=== PATIENT | female | born 1985 | race African-American/Black ===

== ENCOUNTER 2017-03-18 10:07 | Emergency (ER) | payer MEDICAID ==
[~2017-03-18] VITALS: Ht 172.7 cm; Wt 99.8 kg
[2017-03-18 11:00] LABS: Basophils # (auto) 0.1 uL; Eosinophils # (auto) 0.1 uL; Hematocrit 23.3 % (36.0-46.0); Lymphocytes # (auto) 1.2 uL; Lymphocytes % (auto) 7.7 % (10.0-50.0); Mean Corpuscular Hemoglobin 15.9 pg (28.0-32.0); Mean Corpuscular Hgb Conc. 27.7 g/dL (32.0-36.0); Neutrophils # (auto) 12.8 uL
[2017-03-18 11:02] LABS: Basophils % (auto) 0.6 % (0.0-2.0); Eosinophils % (auto) 0.9 % (0.0-7.0); Mean Corpuscular Volume 57.5 fL (80.0-100.0); Monocytes # (auto) 1.5 uL; Monocytes % (auto) 9.3 % (0.0-12.0); Neutrophils % (auto) 81.5 % (37.0-80.0); Nucleated Red Blood Cells % 0.2 %; Platelet Count (auto) 256 10^3/uL (140-450); Red Blood Cells 4.04 10^6/uL (4.0-5.20); White Blood Cell 15.7 10^3/uL (4.4-10.8)
[2017-03-18 11:07] LABS: Hemoglobin 6.4 g/dL (12.2-16.2)
[2017-03-18 11:30] LABS: Alanine Aminotransferase 18 U/L (13-56); Albumin 3.9 g/dL (3.4-5.0); Alkaline Phosphatase 72 U/L (45-117); Anion Gap 8 (5-15); Aspartate Aminotransferase 14 U/L (15-37); BUN/Creatinine Ratio 14.9; Bilirubin, Total 0.7 mg/dL (0.2-1.0); Blood Urea Nitrogen 13 mg/dL (7-18); Calcium 8.9 mg/dL (8.5-10.1); Carbon Dioxide 23 mmol/L (21-32); Chloride 107 mmol/L (98-107); GFR African American 98 mL/min; GFR Non-African American 81 mL/min; Glucose 102 mg/dL (74-106); Potassium 4.2 mmol/L (3.5-5.1); Sodium 138 mmol/L (136-145); Total Protein 7.9 g/dL (6.4-8.2)
[2017-03-18 12:15] VITALS: BP 138/71
[2017-03-18 12:45] LABS: Urine Bacteria FEW /hpf (None Seen); Urine Blood Negative /uL (Negative); Urine Mucus FEW (None Seen); Urine Specific Gravity 1.021 (1.001-1.035); Urine WBC 1 /hpf (0 - 5)
== END 2017-03-18 13:46 | disposition left against medical advice (07) ==
LOC: ER 10:07 → EDBD 10:07 → ER 13:46
DX: R07.9 Chest pain, unspecified (principal); T45.4X5A Adverse effect of iron and its compounds, initial encounter; D64.9 Anemia, unspecified; R42 Dizziness and giddiness; Y93.89 Activity, other specified; Y99.8 Other external cause status; Y92.89 Other specified places as the place of occurrence of the external cause
CPT/HCPCS: 36415; 80053; 81001; 84484; 85025; 93005

== ENCOUNTER 2017-03-21 05:31 | Emergency (ER) | payer MEDICAID ==
[2017-03-21] VITALS (11 sets, daily range): BP systolic 134–151; BP diastolic 55–86
[~2017-03-21] VITALS: Ht 172.7 cm; Wt 99.8 kg
[2017-03-21 06:25] LABS: Albumin 3.8 g/dL (3.4-5.0); BUN/Creatinine Ratio 16.3; Basophils # (auto) 0.1 uL; Basophils % (auto) 0.8 % (0.0-2.0); Calcium 8.6 mg/dL (8.5-10.1); Eosinophils # (auto) 0.2 uL; Eosinophils % (auto) 2.4 % (0.0-7.0); Hematocrit 23.4 % (36.0-46.0); Lymphocytes # (auto) 1.6 uL; Mean Corpuscular Hgb Conc. 28.1 g/dL (32.0-36.0); Mean Corpuscular Volume 56.9 fL (80.0-100.0); Mean Platelet Volume 8.5 fL (6.9-10.8); Monocytes # (auto) 0.8 uL; Monocytes % (auto) 10.4 % (0.0-12.0); Neutrophils # (auto) 4.9 uL; Neutrophils % (auto) 65.4 % (37.0-80.0); Platelet Count (auto) 348 10^3/uL (140-450); Potassium 3.7 mmol/L (3.5-5.1); White Blood Cell 7.5 10^3/uL (4.4-10.8)
[2017-03-21 06:26] LABS: Red Cell Distribution Width 22.4 % (11.8-14.3)
[2017-03-21 06:28] LABS: Bilirubin, Total 0.3 mg/dL (0.2-1.0); Total Protein 7.8 g/dL (6.4-8.2)
[2017-03-21 06:29] LABS: Hemoglobin 6.6 g/dL (12.2-16.2)
[2017-03-21 08:55] LABS: Platelet Estimate Adequate
[2017-03-21 08:56] LABS: Anisocytosis Moderate; Hypochromia Marked; Large Platelets FEW; Microcytosis Marked; Ovalocytes FEW; Tear Drop Cells FEW
[2017-03-21] MEDS ORDERED: SODIUM CHLORIDE 0.9% 1,000 ML IV ONE (09:55)
[2017-03-21 12:50] LABS: Urine Bilirubin Negative (Negative); Urine Blood Negative /uL (Negative); Urine Color Yellow (Yellow); Urine Glucose Normal (Normal); Urine Ketone Negative (Negative); Urine Mucus FEW (None Seen); Urine Nitrite Negative (Negative); Urine RBC 1 /hpf (0 - 4); Urine Squamous Epithelial Cell FEW /hpf (<5); Urine Urobilinogen Normal (Negative)
[2017-03-21 22:58] LABS: Hematocrit 29.9 % (36.0-46.0)
[2017-03-21 23:03] LABS: Hemoglobin 9.1 g/dL (12.2-16.2)
== END 2017-03-22 00:02 | disposition home or self-care (01) ==
LOC: ER 05:31
DX: D50.9 Iron deficiency anemia, unspecified (principal); D25.1 Intramural leiomyoma of uterus; I10 Essential (primary) hypertension
CPT/HCPCS: 36415; 36430; 80053; 81001; 83735; 85014; 85018; 85025; 86850; 86900; 86901; 86920; 93005; 94761; 96360; 96361; 99285; J7030; J7040; P9016

== ENCOUNTER 2017-06-10 19:01 | Inpatient (IN) | payer MEDICAID ==
[~2017-06-10] VITALS: Ht 165.1 cm; Wt 96.6 kg
[2017-06-10 20:04] LABS: Urine Bacteria NONE SEEN /hpf (None Seen); Urine Blood Negative /uL (Negative); Urine Mucus FEW (None Seen); Urine Specific Gravity 1.027 (1.001-1.035); Urine WBC 3 /hpf (0 - 5)
[2017-06-10 21:00] LABS: Basophils # (auto) 0.1 uL; Basophils % (auto) 0.7 % (0.0-2.0); Eosinophils # (auto) 0.1 uL; Hemoglobin 7.1 g/dL (12.2-16.2); Monocytes % (auto) 12.8 % (0.0-12.0); Nucleated Red Blood Cells % 0.2 %
[2017-06-10 21:02] LABS: Eosinophils % (auto) 1.6 % (0.0-7.0); Hematocrit 25.6 % (36.0-46.0); Lymphocytes # (auto) 2.1 uL; Lymphocytes % (auto) 25.6 % (10.0-50.0); Mean Corpuscular Hemoglobin 15.2 pg (28.0-32.0); Mean Corpuscular Hgb Conc. 27.9 g/dL (32.0-36.0); Mean Corpuscular Volume 54.6 fL (80.0-100.0); Neutrophils # (auto) 4.8 uL; Neutrophils % (auto) 59.3 % (37.0-80.0); Platelet Count (auto) 234 10^3/uL (140-450); White Blood Cell 8.1 10^3/uL (4.4-10.8)
[2017-06-10 21:26] LABS: Red Cell Distribution Width 20.7 % (11.8-14.3)
[2017-06-10 21:28] LABS: INR 0.98 (0.9-1.15); Partial Thromboplastin Time 23.9 sec (22.64-33.71); Prothrombin Time 10.7 sec (9.37-12.3)
[2017-06-10 21:40] LABS: BUN/Creatinine Ratio 16.7; Bilirubin, Total 0.4 mg/dL (0.2-1.0); Calcium 8.9 mg/dL (8.5-10.1); Potassium 3.6 mmol/L (3.5-5.1)
[2017-06-10 21:41] LABS: Albumin 4.2 g/dL (3.4-5.0); Total Protein 8.4 g/dL (6.4-8.2)
[2017-06-11] VITALS (7 sets, daily range): BP systolic 127–153; BP diastolic 72–85
[2017-06-11] MEDS ORDERED: HYDROcodone-ACET 5/325MG TAB PO PRN (06:30)
[2017-06-11] MEDS ORDERED: ACETAMINOPHEN 500 MG TAB PO PRN (06:30)
[2017-06-11] MEDS ORDERED: ONDANSETRON HCL 4 MG/2 ML VIAL IV PRN (06:30)
[2017-06-11 12:31] LABS: Basophils # (auto) 0.1 uL; Eosinophils # (auto) 0.1 uL; Hematocrit 29.2 % (36.0-46.0); Monocytes # (auto) 1.1 uL; Monocytes % (auto) 16.3 % (0.0-12.0)
[2017-06-11 12:34] LABS: Basophils % (auto) 1.2 % (0.0-2.0); Eosinophils % (auto) 1.3 % (0.0-7.0); Hemoglobin 8.6 g/dL (12.2-16.2); Lymphocytes # (auto) 1.8 uL; Lymphocytes % (auto) 27.1 % (10.0-50.0); Mean Corpuscular Hemoglobin 17.8 pg (28.0-32.0); Mean Corpuscular Hgb Conc. 29.3 g/dL (32.0-36.0); Mean Corpuscular Volume 60.7 fL (80.0-100.0); Neutrophils # (auto) 3.6 uL; Neutrophils % (auto) 54.1 % (37.0-80.0); Nucleated Red Blood Cells % 0.2 %; Platelet Count (auto) 204 10^3/uL (140-450); Red Blood Cells 4.81 10^6/uL (4.0-5.20); White Blood Cell 6.7 10^3/uL (4.4-10.8)
[2017-06-11 12:44] LABS: Red Cell Distribution Width 29.5 % (11.8-14.3)
== END 2017-06-11 14:30 | DRG 532 ==
LOC: ER 19:01 → OVERFLOW 19:02 → WEST WING 06-11 10:10
PROVIDERS: ADMIT Nurse Practitioner Family; ATTEND Internal Medicine
PROC: 30233N1 Transfusion of Nonautologous Red Blood Cells into Peripheral Vein, Percutaneous Approach (ICD-10-PCS; principal; 2017-06-11)
DX: D25.9 Leiomyoma of uterus, unspecified (principal); I10 Essential (primary) hypertension; D64.9 Anemia, unspecified; E66.9 Obesity, unspecified; Z68.35 Body mass index [BMI] 35.0-35.9, adult; Z82.49 Family history of ischemic heart disease and other diseases of the circulatory system
CPT/HCPCS: 36415; 36430; 80053; 81001; 81025; 85025; 85610; 85730; 86850; 86900; 86901; 86920; 93005

== ENCOUNTER 2017-07-15 04:15 | Emergency (ER) | payer MEDICAID ==
[2017-07-15] VITALS (15 sets, daily range): BP systolic 121–160; BP diastolic 63–95
[~2017-07-15] VITALS: Ht 172.7 cm; Wt 92.5 kg
[2017-07-15 05:12] LABS: Basophils # (auto) 0.1 uL; Basophils % (auto) 0.7 % (0.0-2.0); Eosinophils # (auto) 0.1 uL; Eosinophils % (auto) 1.7 % (0.0-7.0); Monocytes # (auto) 1.1 uL; Neutrophils # (auto) 4.9 uL
[2017-07-15 05:14] LABS: Hematocrit 20.7 % (36.0-46.0); Lymphocytes # (auto) 1.8 uL; Lymphocytes % (auto) 22.5 % (10.0-50.0); Mean Corpuscular Hemoglobin 16.7 pg (28.0-32.0); Mean Corpuscular Hgb Conc. 28.7 g/dL (32.0-36.0); Mean Corpuscular Volume 58.4 fL (80.0-100.0); Monocytes % (auto) 13.9 % (0.0-12.0); Neutrophils % (auto) 61.2 % (37.0-80.0); Nucleated Red Blood Cells % 0.3 %; Platelet Count (auto) 137 10^3/uL (140-450); Red Blood Cells 3.54 10^6/uL (4.0-5.20); White Blood Cell 7.9 10^3/uL (4.4-10.8)
[2017-07-15 05:18] LABS: Red Cell Distribution Width 26.4 % (11.8-14.3)
[2017-07-15 05:19] LABS: Hemoglobin 5.9 g/dL (12.2-16.2)
[2017-07-15 05:27] LABS: Albumin 3.6 g/dL (3.4-5.0); BUN/Creatinine Ratio 17.3; Calcium 8.2 mg/dL (8.5-10.1); Potassium 3.6 mmol/L (3.5-5.1)
[2017-07-15 05:27] LABS: Urine Bacteria NONE SEEN /hpf (None Seen); Urine Blood 2+ /uL (Negative); Urine Mucus FEW (None Seen); Urine Specific Gravity 1.023 (1.001-1.035); Urine WBC 1 /hpf (0 - 5)
[2017-07-15 05:31] LABS: Bilirubin, Total 0.2 mg/dL (0.2-1.0); Total Protein 7.1 g/dL (6.4-8.2)
[2017-07-15] MEDS ORDERED: SODIUM CHLORIDE 0.9% 1,000 ML IV ONE (07:29)
[2017-07-15 14:16] LABS: Eosinophils # (auto) 0.1 uL; Hemoglobin 8.7 g/dL (12.2-16.2); Monocytes # (auto) 0.9 uL; Nucleated Red Blood Cells % 0.1 %
[2017-07-15 14:17] LABS: Basophils # (auto) 0 uL; Basophils % (auto) 0.6 % (0.0-2.0); Eosinophils % (auto) 1.2 % (0.0-7.0); Hematocrit 28.6 % (36.0-46.0); Lymphocytes # (auto) 2.2 uL; Lymphocytes % (auto) 31.7 % (10.0-50.0); Mean Corpuscular Hgb Conc. 30.4 g/dL (32.0-36.0); Mean Corpuscular Volume 65.8 fL (80.0-100.0); Monocytes % (auto) 13.6 % (0.0-12.0); Neutrophils # (auto) 3.6 uL; Neutrophils % (auto) 52.9 % (37.0-80.0); Platelet Count (auto) 110 10^3/uL (140-450); Red Blood Cells 4.34 10^6/uL (4.0-5.20); White Blood Cell 6.8 10^3/uL (4.4-10.8)
[2017-07-15 14:22] LABS: Red Cell Distribution Width 31.6 % (11.8-14.3)
== END 2017-07-15 15:20 | disposition home or self-care (01) ==
LOC: ER 04:17
DX: D50.9 Iron deficiency anemia, unspecified (principal); D25.9 Leiomyoma of uterus, unspecified
CPT/HCPCS: 36415; 36430; 80053; 81001; 81025; 83735; 85025; 86850; 86900; 86901; 86920; 96360; 96361; 99285; J7030; P9016